=== PATIENT | female | born 1965 | race Caucasian/White ===

== ENCOUNTER 2023-11-15 11:14 | Emergency (ER) | payer OTHER ==
[~2023-11-15] VITALS: Ht 162.6 cm; Wt 54.0 kg
[2023-11-15 11:19] VITALS: O2SAT 98
[2023-11-15 12:22] VITALS: BP 151/80; PULSE 68; RESP 18; TEMP 37.05852; O2SAT 99
== END 2023-11-15 12:37 | disposition home or self-care (01) ==
LOC: ER 11:14
DX: R05.9 Cough, unspecified (principal); Z77.098 Contact with and (suspected) exposure to other hazardous, chiefly nonmedicinal, chemicals
CPT/HCPCS: 99283